=== PATIENT | female | born 1995 | race Caucasian/White ===

== ENCOUNTER 2017-07-05 14:35 | Emergency (ER) | payer OTHER, MEDICAID ==
[2017-07-05] MEDS: ACETAMINOPHEN 325 MG TAB PO (15:23)
[2017-07-05] MEDS: ONDANSETRON (ODT) 4 MG TAB ODT (15:24)
== END 2017-07-05 16:16 | disposition home or self-care (01) ==
LOC: FTE 14:35
DX: J06.9 Acute upper respiratory infection, unspecified (principal); R11.10 Vomiting, unspecified; R19.7 Diarrhea, unspecified; R52 Pain, unspecified
CPT/HCPCS: 99284; Z7502